=== PATIENT | female | born 1955 ===

== ENCOUNTER → 2017-09-07 | Outpatient (CLI) | payer OTHER ==
[~2017-09-07] MED LIST: ASPI81TA28 PO; DTR/5 PO; ISOS120T5 PO; LEVO75TA36 PO; LISI5TAB3 PO; METF-384 PO; METO100T7 PO; NITR0.4S UT; PANT40TA PO; PRAS1TAB6 PO; RANO1000 PO; ROSU40TA PO; WARF-246 PO
[2017-09-07 17:59] LABS: BASO % 0.3 %; BASO ABS # 0.02 K/uL (0-0.2); EOS % 0.9 %; EOS ABS # 0.06 K/uL (0-0.5); HEMATOCRIT 38.9 % (37-47); HEMOGLOBIN 12.5 g/dL (12.0-16.0); IG# 0.01 K/uL (0.00-0.02); LYMPH ABS # 1.23 K/uL (1.2-3.4); MEAN CELL VOLUME 90.3 fL (80-100); MEAN CORPUSCULAR HGB CONC 32.1 g/dl (32-36); MEAN PLATELET VOLUME 10.1 fL (7.4-10.4); MONO % 11.5 %; MONO ABS # 0.79 K/uL (0.11-0.59); NEUT % 69.2 %; NEUT ABS # 4.73 K/uL (1.4-6.5); PLATELET COUNT 218 K/uL (130-400); RED CELL DISTRIBUTION WIDTH CV 13.5 % (11.5-14.5); RED CELL DISTRIBUTION WIDTH SD 44.7 fL (36.4-46.3); WHITE BLOOD COUNT 6.84 K/uL (4.8-10.8)
[2017-09-07 19:28] LABS: BLOOD UREA NITROGEN 14 mg/dl (7-18); CARBON DIOXIDE 28 mmol/L (21-32); CREATININE 0.63 mg/dl (0.60-1.20); GLUCOSE 94 mg/dl (70-99); POTASSIUM 3.7 mmol/L (3.5-5.1); SODIUM 135 mmol/L (136-145)
== END | disposition home or self-care (01) ==
LOC: C.LABMFLN 10:08
PROVIDERS: ATTEND Physician Assistant
DX: E03.9 Hypothyroidism, unspecified (principal); Z95.5 Presence of coronary angioplasty implant and graft

== ENCOUNTER → 2017-09-26 | Outpatient (CLI) | payer OTHER ==
[2017-09-26 12:25] LABS: BASO % 0.3 %; BASO ABS # 0.02 K/uL (0-0.2); EOS % 1.2 %; EOS ABS # 0.09 K/uL (0-0.5); HEMATOCRIT 38.8 % (37-47); HEMOGLOBIN 12.7 g/dL (12.0-16.0); IG# 0.01 K/uL (0.00-0.02); LYMPH % 19.5 %; LYMPH ABS # 1.43 K/uL (1.2-3.4); MEAN CELL VOLUME 89.8 fL (80-100); MEAN CORPUSCULAR HEMOGLOBIN 29.4 pg (25-34); MEAN CORPUSCULAR HGB CONC 32.7 g/dl (32-36); MEAN PLATELET VOLUME 10.1 fL (7.4-10.4); MONO % 7.9 %; MONO ABS # 0.58 K/uL (0.11-0.59); NEUT ABS # 5.19 K/uL (1.4-6.5); PLATELET COUNT 236 K/uL (130-400); RED CELL DISTRIBUTION WIDTH CV 13.7 % (11.5-14.5); RED CELL DISTRIBUTION WIDTH SD 44.9 fL (36.4-46.3); WHITE BLOOD COUNT 7.32 K/uL (4.8-10.8)
[2017-09-26 12:47] LABS: BLOOD UREA NITROGEN 17 mg/dl (7-18); CARBON DIOXIDE 30 mmol/L (21-32); CREATININE 0.69 mg/dl (0.60-1.20); GLUCOSE 119 mg/dl (70-99); POTASSIUM 3.7 mmol/L (3.5-5.1); SODIUM 134 mmol/L (136-145)
== END | disposition home or self-care (01) ==
LOC: C.LABMFLN 10:39
PROVIDERS: ATTEND Family Medicine
DX: E11.9 Type 2 diabetes mellitus without complications (principal); D64.9 Anemia, unspecified

== ENCOUNTER → 2017-11-03 | Outpatient (CLI) | payer OTHER ==
--- NOTE | 2017-11-03 10:32 | DIAGNOSTIC IMAGING REPORT ---
KIDNEY (ABDOMEN) COMBO CLINICAL HISTORY: RENAL MASS TECHNIQUE: Multiphase CT evaluation of the abdomen and kidneys COMPARISON STUDY: Limited prior studies at outside institution dated 07/31/2017. Findings: The unenhanced component of the study demonstrates a prior cholecystectomy. There is a left adrenal nodule measuring 2 cm. Unenhanced Hounsfield measurements are approximately 3. This increases to 20 and diminishes to 24 on later phases of the study. This satisfies the bulk of criteria for lipid poor adenoma are in its should be watched nevertheless. The kidneys appear to enhance appropriately. There is a 1 cm nodule peripheral aspect lower pole left kidney. Unenhanced Hounsfield measurements are approximately 24. This increases to 25 in the mid arterial phase with delayed phase measurements diminishing to 6. This is at the limits of resolution of the scanner but suggests the possibility of a hyperdense cyst. Nevertheless, due to its small size possibility of inaccurate density readings are considerations. Liver spleen and pancreas again remain unremarkable. Enhancement characteristics are uniform. Bowel pattern is nonobstructive. IMPRESSION: 1. 2 cm left adrenal nodule/mass demonstrating enhancement component suggesting a lipid poor adenoma. 2. 1 cm peripheral nodule lower pole left kidney demonstrating components suggestive of a hyperdense cyst. 3. As all findings are susceptible to partial volume effects due to their relatively small size, it is recommended a six-month follow-up be performed. 4. Prior cholecystectomy. 5. Nonobstructing calcification lower pole right kidney. The above report was generated using voice recognition software. It may contain grammatical, syntax or spelling errors. Electronically signed by: Wilfred Oshea M.D. 11/03/2017 10:30 AM Dictated Date/Time: 11/03/2017 10:11 AM
== END | disposition home or self-care (01) ==
LOC: C.CTS 09:31
PROVIDERS: ATTEND Urology
DX: N28.89 Other specified disorders of kidney and ureter (principal); E27.9 Disorder of adrenal gland, unspecified; Z90.49 Acquired absence of other specified parts of digestive tract

== ENCOUNTER → 2018-04-06 | Outpatient (CLI) | payer OTHER ==
[2018-04-06 12:36] LABS: BASO % 0.3 %; BASO ABS # 0.02 K/uL (0-0.2); EOS % 0.7 %; EOS ABS # 0.05 K/uL (0-0.5); HEMATOCRIT 37.5 % (37-47); HEMOGLOBIN 11.8 g/dL (12.0-16.0); IG# 0.01 K/uL (0.00-0.02); LYMPH % 19.6 %; LYMPH ABS # 1.45 K/uL (1.2-3.4); MEAN CELL VOLUME 91.7 fL (80-100); MEAN CORPUSCULAR HEMOGLOBIN 28.9 pg (25-34); MEAN CORPUSCULAR HGB CONC 31.5 g/dl (32-36); MEAN PLATELET VOLUME 10.2 fL (7.4-10.4); MONO % 9.3 %; MONO ABS # 0.69 K/uL (0.11-0.59); NEUT ABS # 5.19 K/uL (1.4-6.5); PLATELET COUNT 214 K/uL (130-400); RED CELL DISTRIBUTION WIDTH CV 14.4 % (11.5-14.5); WHITE BLOOD COUNT 7.41 K/uL (4.8-10.8)
[2018-04-06 12:55] LABS: HEMOGLOBIN A1C 6.7 % (4.5-5.6)
[2018-04-06 13:10] LABS: ALBUMIN 3.5 gm/dl (3.4-5.0); ALKALINE PHOSPHATASE 80 U/L (45-117); ALT/SGPT 19 U/L (12-78); AST/SGOT 17 U/L (15-37); BLOOD UREA NITROGEN 15 mg/dl (7-18); CALCIUM 8.4 mg/dl (8.5-10.1); CARBON DIOXIDE 28 mmol/L (21-32); CHOLESTEROL 166 mg/dl (0-200); CREATININE 0.66 mg/dl (0.60-1.20); GLUCOSE 120 mg/dl (70-99); LDL CHOLESTEROL CALCULATED 68 mg/dl; POTASSIUM 4.1 mmol/L (3.5-5.1); SODIUM 137 mmol/L (136-145); TOTAL PROTEIN 7.4 gm/dl (6.4-8.2)
== END | disposition home or self-care (01) ==
LOC: C.LABMFLN 09:32
PROVIDERS: ATTEND Family Medicine
DX: D64.9 Anemia, unspecified (principal); E11.9 Type 2 diabetes mellitus without complications; E03.9 Hypothyroidism, unspecified; M54.5 Low back pain; M79.1 Myalgia; E78.5 Hyperlipidemia, unspecified